=== PATIENT | female | born 1985 | race American Indian/Alaskan Native ===

== ENCOUNTER 2020-04-18 19:35 | Emergency (ER) | payer OTHER ==
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
[2020-04-19 06:21] VITALS: BP 122/65
== END 2020-04-19 03:40 | disposition home or self-care (01) ==
LOC: ED 19:35
DX: M54.2 Cervicalgia (principal); M25.512 Pain in left shoulder; V89.2XXA Person injured in unspecified motor-vehicle accident, traffic, initial encounter; Y93.89 Activity, other specified; Y92.410 Unspecified street and highway as the place of occurrence of the external cause; Y99.8 Other external cause status
CPT/HCPCS: 99282